=== PATIENT | female | born 1980 | race Caucasian/White ===

== ENCOUNTER 2022-03-07 09:30 | Emergency (ER) | payer OTHER, SELFPAY ==
--- NOTE | ~2022-03-07 | CT_ITS ---
EXAMINATION: CTA chest PE protocol DATE: 03/07/2022 12:14 CDT INDICATION: Shortness of breath, tachycardia and chest pain. TECHNIQUE: Computed tomographic angiography (CTA) of the chest was performed with 100 mL Omnipaque-35 0 intravenous contrast. The dose-length product was 301.56 mGy-cm. Maximum intensity projection 3D-re constructions of the aorta and other arteries were constructed by the technologist on a separate work station. Automated exposure control and iterative reconstruction technique were employed. COMPARISON: Chest x-ray dated 03/09/2019. FINDINGS: Study is technically adequate without evidence for pulmonary embolism. Cardiomegaly. Left v entricular enlargement with hypertrophy. No evidence for aortic aneurysm or dissection. No significan t pleural or pericardial effusion. There are cholecystectomy clips. Small hiatal hernia. No thoracic lymphadenopathy. There is dependent atelectasis. No endobronchial lesions. No pneumothorax. No suspic ious pulmonary nodules or masses. Mild lower thoracic spondylosis. IMPRESSION: 1. No acute cardiopulmonary disease. No evidence for pulmonary embolism. Reviewed, dictated and finalized at location A.
--- NOTE | 2022-03-07 09:46 | ED.CHESTPAIN ---
HPI - Chest Pain General Chief Complaint: Chest Pain Stated Complaint: 0800 woke up sob and cp, n/v x 1 Time Seen by Provider: 03/07/22 09:33 History of Present Illness HPI narrative: Patient is a 41-year-old female with a history of lupus here for evaluation of chest pain and shortness of breath today upon waking up. Patient is lethargic upon arrival. States she has vomited non-bloody/ non-bilious emesis x 1 but denies any abdominal pain. The pain is in the center of her chest and is described as a tightness . No fevers, chills, diaphoresis, leg swelling. She follows at [facility] for the entirety of her care. She has issues with low blood glucose and sees an executive administrator there; most recent hypoglycemic event was back in December. She frequently accu-checks her sugars at home and states they have been in the 70s recently. No history of DVT/PE. She had an echo in February of this year which showed a reduced EF. Related Data Allergies Allergy/AdvReac Type Severity Reaction Status Date / Time Sulfa (Sulfonamide Allergy Dizziness Verified 03/07/22 10:09 Antibiotics) Review of Systems Review of Systems: Gen: Denies fevers or chills Eyes: Denies eye pain or visual change ENT: Denies congestion Respiratory: Denies cough CV: reports chest pain and shortness of breath. GI: reports vomiting. Denies abdominal pain or diarrhea : denies burning, urgency, frequency or hematuria Musculoskeletal: Denies back pain or muscle pain Neuro: Denies numbness, tingling, weakness or focal weakness Skin: Denies rash Except as documented, all other systems reviewed and negative Exam Narrative: APPEARANCE: Lethargic, uncomfortable appearing Head: Normocephalic and atraumatic. EYES: PERRLA/EOMI, conjunctivae clear NOSE: No nasal drainage EARS: External ear normal in appearance THROAT: Oropharynx is clear. Mucous membranes are moist. NECK: Supple. No adenopathy, no masses. RESPIRATORY: Airway patent, respirations nonlabored. Clear to auscultation bilaterally, no rales, rhonchi, wheezing. CARDIOVASCULAR: Regular rate and rhythm without murmurs, rubs, or gallops. ABDOMINAL: Normoactive bowel sounds. Soft, nontender, nondistended. No rebound tenderness or guarding. MUSCULOSKELETAL: Extremities are warm and well-perfused. Moves all extremities well. No edema. NEURO: Normal speech. No focal neurologic deficits. SKIN: hands and feet are mottled. PSYCHIATRIC: Normal affect/mood. Course Consultations Consultation #1: Spoke with endocrine fellow, Dr. Wiggins, agrees with plan for transfer, recommends discussing with hospitalist Date: 03/07/22 Time: 14:31 Consultation #2: Spoke with hospitalist at [facility], does not accept patient for transfer as there is a week long wait for a bed and she feels this may be managed as an outpatient Date: 03/07/22 Time: 14:32 Vital Signs Vital signs: Vital Signs Pulse Rate 98 03/07/22 10:00 Respiratory Rate 14 03/07/22 10:00 Blood Pressure 135/92 H 03/07/22 10:00 Pulse Oximetry 93 03/07/22 10:00 Temperature 98.8 F 03/07/22 10:10 Pulse Rate 114 H 03/07/22 11:29 Respiratory Rate 16 03/07/22 10:15 Blood Pressure 130/96 H 03/07/22 11:29 Pulse Oximetry 98 03/07/22 11:29 MDM - Chest Pain MDM Narrative Medical decision making narrative: Patient is a 41-year-old female with a complex medical history including intermittent low blood sugars and lupus for which she follows at [facility] here for evaluation of lethargy, chest pain and shortness of breath. Upon arrival patient was lethargic and has mottled extremities, although her vital signs are normal including core temperature. Accu-Chek upon arrival was 37, treated with D50. Patient did become more responsive after this, repeat Accu-Chek is 117. Work-up in the ED significant for nonischemic EKG, normal troponins x2, negative COVID test, CTA without evidence of PE or cardiopulmonary disease. ABG is u
--- NOTE | 2022-03-07 09:54 | ECG_ITS ---
Measurements Intervals [place] Rate: 100 P: 58 [place]: 167 QRS: 31 QRSD: 121 T: 42 QT: 395 QTc: 510 Interpretive Statements SINUS TACHYCARDIA RIGHT BUNDLE BRANCH BLOCK ABNORMAL ECG NO PREVIOUS ECG AVAILABLE FOR COMPARISON Electronically Signed On 03-07-2022 13:47:57 CDT by Billy Verma D.O.
[2022-03-07 10:00] VITALS: BP 135/92; PULSE 98; RESP 14; O2SAT 93
[2022-03-07 10:04] LABS: Basophils Percent Auto 0.5 % (0.2-1.2); Eosinophils Absolute Auto 0.1 K/mm3 (0-0.3); Eosinophils Percent Auto 1.6 % (0-4.4); Hematocrit 40.5 % (37.0-47.0); Hemoglobin 13.1 g/dL (12.0-15.0); Immature Granulocyte Absolute 0.02 K/mm3 (0.00-0.031); Immature Granulocyte Percent A 0.5 % (0-0.5); Lymphocytes Absolute Auto 0.65 K/mm3 (0.9-3.2); Lymphocytes Percent Auto 17.8 % (18.3-44.2); Mean Corpuscular HGB Conc 32.3 g/dl (32-36); Mean Corpuscular Hemoglobin 29.3 pg (26-34); Mean Corpuscular Volume 90.6 fl (80-100); Monocytes Absolute Auto 0.4 K/mm3 (0.1-0.6); Monocytes Percent Auto 12.1 % (2.6-8.5); Neutrophils Absolute Auto 2.5 K/mm3 (1.3-6.7); Neutrophils Percent Auto 67.5 % (45.5-73.1); Platelet Count Result 214 k/mm3 (150-375); Red Blood Count 4.47 M/mm3 (4.2-5.4); Red Cell Distribution Width 13.2 % (11.5-14.5); White Blood Count 3.7 K/mm3 (4.5-10.0)
[2022-03-07 10:06] LABS: Glucose Point of Care 37 mg/dl (65-105)
[2022-03-07] MEDS: DEXTROSE 50% 25 GM/50 ML SYRINGE IV PUSH (10:06)
[2022-03-07 10:10] VITALS: BP 135/92; PULSE 97; RESP 13; TEMP 37.1; O2SAT 99
[2022-03-07 10:14] LABS: Prothrombin Time 12.9 Seconds (11.1-14.7)
[2022-03-07 10:15] VITALS: BP 148/94; PULSE 111; RESP 16; O2SAT 99
[2022-03-07 10:15] LABS: Partial Thromboplastin Time 24.8 SECONDS (22.3-36.8)
[2022-03-07 10:21] LABS: Base Excess ABG -1.4 mEq/l (+/-2.0); Fractional Inspired Oxygen 21 %; HCO3 ABG 21.3 mEq/l (22.0-26.0); Oxygen Content ABG 17.9 %vol (16.0-22.0); Oxygen Saturation ABG 98.8 % (95.0-100.0); Oxyhemoglobin 97.4 % THb (90.0-100.0); PCO2 ABG 30.1 mmHg (35.0-45.0); PO2 ABG 132.8 mmHg (80.0-100.0); PO2 FiO2 Ratio Arterial Blood 6.32 %; Total Hemoglobin 12.9 g/dL (12.0-18.0); pH ABG 7.468 (7.350-7.450)
[2022-03-07 10:22] LABS: Device ROOM AIR; Modified Allen's Test Pass; Site Drawn LEFT RADIAL
[2022-03-07 10:27] LABS: Glucose Point of Care 117 mg/dl (65-105)
[2022-03-07 10:29] LABS: Alanine Aminotransferase 28 U/L (6-35); Albumin Level 4.1 g/dL (3.5-5.1); Alkaline Phosphatase 158 U/L (38-126); Anion Gap 10 mmol/L (8-16); Aspartate Amino Transferase 38 U/L (14-36); Bilirubin,Total 0.6 mg/dL (0.2-1.3); Blood Urea Nitrogen 18 mg/dL (7-17); Calcium 8.9 mg/dL (8.4-10.2); Carbon Dioxide 24 mmol/L (22-30); Chloride 104 mmol/L (98-107); Estimated CRCL calculation 86 ml/min; Estimated Glomerular Filt Rate > 60; Glucose 128 mg/dL (65-110); Sodium 138 mmol/L (137-145)
[2022-03-07 10:30] LABS: Lactic Acid Reflex 1.4 mmol/L (0.7-2.0); Lipase 57 U/L (23-300)
[2022-03-07 10:41] LABS: NT Pro B Type Natriuretic Pept 390 pg/mL (5-100); Troponin I < 0.012 ng/mL (0.000-0.034)
[2022-03-07 10:58] LABS: SARS-CoV-2 RNA PCR Negative
[2022-03-07 11:29] VITALS: BP 130/96; PULSE 114; O2SAT 98
[2022-03-07] MEDS: ASPIRIN 325 MG TABLET PO (13:42)
[2022-03-07] MEDS: Please add drug allergy info to patient profile. 1 EACH XX (13:43)
[2022-03-07 13:45] LABS: Glucose Point of Care 101 mg/dl (65-105)
[2022-03-07 14:02] LABS: Troponin I < 0.012 ng/mL (0.000-0.034)
== END 2022-03-07 15:13 | disposition home or self-care (01) ==
PROVIDERS: Physician Assistant; Emergency Provider Emergency Medicine; PCP Physician Assistant
DX: E16.2 Hypoglycemia, unspecified (principal); Z20.822 Contact with and (suspected) exposure to COVID-19; R00.0 Tachycardia, unspecified; I45.10 Unspecified right bundle-branch block
CPT/HCPCS: 36415; 36600; 51701; 71275; 80053; 81025; 82805; 82948; 83605; 83690; 83880; 84436; 84443; 84484; 85025; 85610; 85730; 93005; 96374; 99284; A9270; C9803; Q9967; U0003; U0005